=== PATIENT | female | born 1980 | race Caucasian/White ===

== ENCOUNTER 2016-11-10 13:33 | Inpatient (IN) | payer OTHER ==
[~2016-11-10] VITALS: Ht 157.5 cm; Wt 68.0 kg
[2016-11-10 15:30] LABS: HEMOGLOBIN 14.8 gm/dl (12.3-15.3); RED BLOOD COUNT 4.49 M/UL (4.00-5.10); WHITE BLOOD COUNT 6.7 K/UL (4.5-11.0)
[2016-11-10 16:08] LABS: BUN/CREATININE RATIO 18 (0-10)
[2016-11-12 05:47] LABS: HEMOGLOBIN 13.2 gm/dl (12.3-15.3); RED BLOOD COUNT 4.05 M/UL (4.00-5.10); WHITE BLOOD COUNT 5.9 K/UL (4.5-11.0)
[2016-11-12 06:10] LABS: BUN/CREATININE RATIO 23 (0-10)
[2016-11-14 06:17] LABS: BUN/CREATININE RATIO 14 (0-10)
[2016-11-14] MEDS ORDERED: ZYVOX600 MG PO (13:30)
[2016-11-14] MEDS ORDERED: TYLENOL 325MG325 MG PO (13:31)
== END 2016-11-14 15:31 | disposition home or self-care (01) | DRG 580 ==
LOC: ER1 13:33 → M/S 20:15 → ZEROF 20:15 → M/S 22:03
PROVIDERS: Internal Medicine; Internal Medicine Infectious Disease; Physician Assistant Medical; Surgery; ADMIT Internal Medicine
PROC: 0J9P0ZZ Drainage of Left Lower Leg Subcutaneous Tissue and Fascia, Open Approach (ICD-10-PCS; principal; 2016-11-11 12:37)
PROC: 02HV33Z Insertion of Infusion Device into Superior Vena Cava, Percutaneous Approach (ICD-10-PCS; 2016-11-12)
PROC: B548ZZA Ultrasonography of Superior Vena Cava, Guidance (ICD-10-PCS; 2016-11-12)
DX: S80.12XA Contusion of left lower leg, initial encounter (principal); L02.416 Cutaneous abscess of left lower limb; L03.116 Cellulitis of left lower limb; B95.62 Methicillin resistant Staphylococcus aureus infection as the cause of diseases classified elsewhere; F11.10 Opioid abuse, uncomplicated; F15.10 Other stimulant abuse, uncomplicated; F17.210 Nicotine dependence, cigarettes, uncomplicated; X58.XXXA Exposure to other specified factors, initial encounter; Z88.3 Allergy status to other anti-infective agents; Z88.0 Allergy status to penicillin
CPT/HCPCS: 36415; 80048; 80053; 80074; 80202; 84703; 85025; 86140; 87070; 87075; 87077; 87186; 87205; 87390; 96365; 96366; 99285; J0295; J1885; J2250; J2270; J2405; J2550; J3370; J7030; J7040; J7050; J7070; J7120

== ENCOUNTER 2021-03-15 17:41 | Emergency (ER) | payer OTHER ==
[~2021-03-15 17:41] MED LIST: ACTIGALL 300MG300 MG PO; BACTROBAN OINT22 GM EXT; IBUPROFEN600 MG PO; NORFLEX 100 MG100 MG PO; PRENATABS FA T1 EACH PO; PROTONIX 20 MG20 MG PO; TYLENOL 325MG325 MG PO; VISTARIL25 MG PO; ZYVOX600 MG PO
[2021-03-15 21:23] LABS: HEMOGLOBIN 14.6 gm/dl (12.3-15.3); RED BLOOD COUNT 4.42 M/UL (4.00-5.10); WHITE BLOOD COUNT 5.7 K/UL (4.5-11.0)
[2021-03-15 21:45] LABS: BUN/CREATININE RATIO 15 (0-10)
== END 2021-03-15 23:00 | disposition home or self-care (01) ==
LOC: ER1 17:41
PROVIDERS: Physician Assistant
DX: R10.9 Unspecified abdominal pain (principal); R31.9 Hematuria, unspecified; I10 Essential (primary) hypertension; F17.200 Nicotine dependence, unspecified, uncomplicated
CPT/HCPCS: 80053; 81001; 83690; 85025; 87086; 99284; Q9967